=== PATIENT | male | born 1970 | race Two or more races ===

== ENCOUNTER 2025-05-31 16:20 | Inpatient (IN) | payer MEDICARE, MEDICAID ==
[~2025-05-31] VITALS: Ht 182.9 cm; Wt 131.1 kg
[2025-05-31 17:43] LABS: COVID AG,FIA SOURCE NASAL SWAB
[2025-05-31] MEDS ORDERED: PALI234D IM (17:43)
[2025-05-31] MEDS ORDERED: SERT-158 PO (17:43)
[2025-05-31] MEDS ORDERED: HYDR-5256 PO (17:43)
[2025-05-31] MEDS ORDERED: LORA2TAB18 PO (17:43)
[2025-05-31] MEDS ORDERED: OLME5TAB32 PO (17:43)
[2025-05-31] MEDS ORDERED: QUET25TA PO (17:43)
[2025-05-31] MEDS ORDERED: HALO100V36 IM (17:43)
[2025-05-31 17:50] LABS: PLATELET COUNT (AUTO) 167 K/uL (150-450); RED BLOOD CELL COUNT(AUTO) 5.10 MIL/uL (4.50-5.90); RED CELL DISTRIBUTION WIDTH 12.2 % (11.5-14.5); WHITE BLOOD COUNT (AUTO) 11.2 K/uL (4.5-11.0)
[2025-05-31 17:53] LABS: SARS-COV2 (COVID) ANTIGEN,FIA Negative (Negative)
[2025-05-31 18:01] LABS: CALCIUM, TOTAL 8.6 mg/dL (8.8-10.5); CREATININE 0.99 mg/dL (0.60-1.30); GLOMERULAR FILTR. RATE CALC > 60 mL/min (>60); GLUCOSE,RANDOM 114 mg/dL (70-110); SODIUM SERUM 139 mmol/L (136-145); UREA NITROGEN, BLOOD 17 mg/dL (7-18)
[2025-05-31 22:36] VITALS: O2SAT 100
[2025-06-01 00:10] VITALS: BP 137/81; PULSE 81; RESP 18; TEMP 98.5; O2SAT 98
[2025-06-01] MEDS: ZOLPIDEM TARTRATE 10 MG TABLET PO PRN (00:29)
[2025-06-01] MEDS ORDERED: LOPERAMIDE HCL 2 MG CAPSULE PO PRN (06:00)
[2025-06-01] MEDS ORDERED: ALBUTEROL SULFATE HFA 90 MCG/PUFF 8 GM INHALER IH PRN (06:00)
[2025-06-01] MEDS ORDERED: IBUPROFEN 400 MG TABLET PO PRN (06:00)
[2025-06-01] MEDS ORDERED: GuaiFENesin/D-METHORPHAN [SUGAR-FREE] 200-20MG/10 ML SYRUP UDCUP PO PRN (06:00)
[2025-06-01] MEDS ORDERED: ONDANSETRON 4 MG TABLET PO PRN (06:00)
[2025-06-01] MEDS ORDERED: ACETAMINOPHEN 325 MG TABLET PO PRN (06:00)
[2025-06-01] MEDS ORDERED: PETROLATUM,WHITE 28 GM JELLY TP PRN (06:00)
[2025-06-01] MEDS ORDERED: MAGNESIUM HYDROXIDE SUSPENSION 30 ML UDCUP PO PRN (06:00)
[2025-06-01] MEDS ORDERED: NICOTINE 14 MG/24 HOUR PATCH TD PRN (06:00)
[2025-06-01] MEDS ORDERED: DOCUSATE SODIUM 100 MG CAPSULE PO PRN (06:00)
[2025-06-01] MEDS ORDERED: MAG HYDROX/ALUMINUM HYD/SIMETH ES 30 ML SUSPENSION UDCUP PO PRN (06:00)
[2025-06-01 08:18] VITALS: BP 154/84; PULSE 93; RESP 17; TEMP 98.5; O2SAT 99
[2025-06-01] MEDS: OLMESARTAN MEDOXOMIL 20 MG TABLET PO SCH (09:00)
[2025-06-01 09:31] LABS: APPEARANCE,URINE CLEAR (CLEAR); GLUCOSE, URINE (UA) NEGATIVE (NEGATIVE); LEUKOCYTE ESTERASE ,URINE NEGATIVE (NEGATIVE); NITRATE,URINE NEGATIVE (NEGATIVE); OCCULT BLOOD,URINE NEGATIVE (NEGATIVE); PH,URINE DRUG SCREEN 6.5 (5.0-8.0); SPECIFIC GRAVITIY, URINE 1.028 (1.003-1.030)
[2025-06-01 09:33] LABS: CHOL/HDL RATIO 3.8 (4.2-7.3); LDL CHOL (CALC.) 67.0 mg/dL (0-130)
[2025-06-01 09:38] LABS: ALCOHOL, URINE DRUG SCREEN NEGATIVE (NEGATIVE); AMPHET/METH SCREEN,URINE NEGATIVE (NEGATIVE); BARBITURATE SCREEN, URINE NEGATIVE (NEGATIVE); CANNABINOID SCREEN,URINE NEGATIVE (NEGATIVE); COCAINE SCREEN,URINE NEGATIVE (NEGATIVE); METHADONE SCREEN, URINE NEGATIVE (NEGATIVE)
[2025-06-01 20:05] VITALS: BP 150/83; PULSE 78; RESP 18; TEMP 98.1; O2SAT 98
[2025-06-02 08:10] VITALS: BP 121/62; PULSE 99; RESP 18; TEMP 97.5; O2SAT 100
[2025-06-02] MEDS: SERTRALINE HCL 50 MG TABLET PO SCH (08:26)
[2025-06-02] MEDS ORDERED: OLMESARTAN MEDOXOMIL 20 MG TABLET PO SCH (09:00)
[2025-06-02 20:02] VITALS: BP 130/77; PULSE 84; RESP 17; TEMP 97.8; O2SAT 100
[2025-06-03 08:08] VITALS: BP 128/72; PULSE 91; RESP 17; TEMP 97.2; O2SAT 96
[2025-06-03 09:36] LABS: CHOL/HDL RATIO 3.4 (4.2-7.3); LDL CHOL (CALC.) 83.0 mg/dL (0-130)
[2025-06-03 22:59] VITALS: BP 138/68; PULSE 86; RESP 18; TEMP 97.8; O2SAT 98
[2025-06-04 08:27] VITALS: BP 136/67; PULSE 92; RESP 18; TEMP 98.1; O2SAT 97
[2025-06-04 09:07] LABS: PLATELET COUNT (AUTO) 179 K/uL (150-450); RED BLOOD CELL COUNT(AUTO) 4.95 MIL/uL (4.50-5.90); RED CELL DISTRIBUTION WIDTH 12.0 % (11.5-14.5); WHITE BLOOD COUNT (AUTO) 9.6 K/uL (4.5-11.0)
[2025-06-04 20:02] VITALS: BP 130/78; PULSE 88; RESP 18; TEMP 98.1; O2SAT 98
[2025-06-05 08:43] VITALS: BP 140/80; PULSE 64; RESP 18; TEMP 97.9; O2SAT 97
[2025-06-06 08:03] VITALS: BP 135/67; PULSE 98; RESP 18; TEMP 96.3; O2SAT 98
[2025-06-06] MEDS ORDERED: HALO5VIA16 IM (12:38)
[2025-06-06] MEDS ORDERED: RISP1SOL11 PO (13:21)
[2025-06-06] MEDS ORDERED: RISP-32 PO (13:22)
[2025-06-06] MEDS ORDERED: OLME20TA73 PO (13:31)
== END 2025-06-06 15:07 | DRG 885 ==
LOC: EMS 16:20 → B2X 23:27 → UNDOADMIN 23:27 → B2X 06-01 00:02 → UNDODISIN 06-06 15:07
PROVIDERS: ADMIT Psychiatry & Neurology Child & Adolescent Psychiatry; ATTEND Psychiatry & Neurology Child & Adolescent Psychiatry
PROC: GZ56ZZZ Individual Psychotherapy, Supportive (ICD-10-PCS; principal; 2025-06-01)
PROC: GZ58ZZZ Individual Psychotherapy, Cognitive-Behavioral (ICD-10-PCS; 2025-06-01)
DX: F25.0 Schizoaffective disorder, bipolar type (principal); D72.829 Elevated white blood cell count, unspecified; I10 Essential (primary) hypertension; E78.5 Hyperlipidemia, unspecified; Z20.822 Contact with and (suspected) exposure to COVID-19; F42.9 Obsessive-compulsive disorder, unspecified; F41.9 Anxiety disorder, unspecified; Z88.8 Allergy status to other drugs, medicaments and biological substances; Z91.199 Patient's noncompliance with other medical treatment and regimen due to unspecified reason
CPT/HCPCS: 80048; 80061; 80307; 81003; 83036; 84443; 85025; 87081; 99285; G0480; J1630